=== PATIENT | female | born 1960 | race Caucasian/White ===

== ENCOUNTER 2021-04-22 12:17 | Emergency (ER) | payer OTHER ==
[2021-04-22 13:14] LABS: HEMOGLOBIN 15.1 gm/dl (12.3-15.3); RED BLOOD COUNT 5.06 M/UL (4.00-5.10); WHITE BLOOD COUNT 10.2 K/UL (4.5-11.0)
[2021-04-22 13:42] LABS: BUN/CREATININE RATIO 20 (0-10)
[2021-04-22] MEDS ORDERED: IBUPROFEN600 MG PO (15:30)
== END 2021-04-22 18:00 | disposition home or self-care (01) ==
LOC: ER1 12:17
PROVIDERS: Nurse Practitioner
DX: Z04.1 Encounter for examination and observation following transport accident (principal); J44.9 Chronic obstructive pulmonary disease, unspecified; E11.9 Type 2 diabetes mellitus without complications
CPT/HCPCS: 70450; 71045; 71260; 72125; 80053; 81001; 82550; 82553; 83874; 84484; 85025; 85610; 87077; 87086; 87186; 93005; 96374; 96375; 96376; 99284; J2270; J2405; J7030; Q9967